=== PATIENT | female | born 1940 | race Caucasian/White ===

== ENCOUNTER 2017-03-22 05:25 | Inpatient (IN) | payer OTHER, MEDICARE ==
[~2017-03-22] VITALS: Ht 162.6 cm; Wt 74.8 kg
[~2017-03-22 05:25] MED LIST: AMLODIPINE BESYL5 MG PO; APRESOLINE100 MG PO; ASPIRIN EC325 MG PO; BYSTOLIC10 MG PO; CELECOXIB200 MG PO; CENTRUM SILVER1 EAC3 PO; CITRACAL + D E1 EACH PO; ESCITALOPRAM OX10 MG PO; FISH OIL 1,001000 M1 PO; HYDROCHLOROTH12.5 M3 PO; HYDROCODON-ACE1 EAC7 PO; IRON325 MG PO; MAGNESIUM250 MG PO; NAPROSYN500 MG PO; RED YEAST RICE600 MG PO; SENNA PLUS TAB1 EACH PO; VITAMIN B-125000 MCG SL
[2017-03-22 06:01] VITALS: BP 153/72
[2017-03-22] MEDS ORDERED: OMEPRAZOLE40 M1 PO (06:12)
[2017-03-22 11:01] LABS: HEMATOCRIT 39.8 % (36.0-46.0); MCH 31.5 PG (29.0-34.0); MCHC 32.7 G/DL (30.0-36.0); MCV 96.4 FL (83-99); MEAN PLAT.VOLUME 10.1 uM^3 (9.5-12.4); PLATELET COUNT 232 K/uL (156-360); RBC DIS.WIDTH-SD 46.2 % (39-53); RED BLOOD COUNT 4.13 M/uL (3.80-5.20)
[2017-03-22 11:09] LABS: WHITE BLOOD COUNT 9.8 K/uL (4.1-10.2)
[2017-03-22 12:32] VITALS: BP 120/56
[2017-03-22 15:44] VITALS: BP 137/63
[2017-03-22 20:00] VITALS: BP 170/73
[2017-03-23 00:16] VITALS: BP 162/74
[2017-03-23 03:48] VITALS: BP 138/73
[2017-03-23 04:57] LABS: HEMATOCRIT 35.8 % (36.0-46.0); MCV 95.7 FL (83-99)
[2017-03-23 05:08] LABS: CHLORIDE 103 mEq/L (99-109); POTASSIUM 4.4 mEq/L (3.7-5.4); SODIUM 133 mEq/L (136-147)
[2017-03-23 05:10] LABS: GLUCOSE 142 mg/dL (70-99)
[2017-03-23 05:12] LABS: ANION GAP 8 MEQ/L (2-14)
[2017-03-23 05:14] LABS: GFR ESTIMATE (CALCULATED) > 59 mL/min/
[2017-03-23 05:15] LABS: UREA NITROGEN (BUN) 23 mg/dL (9-23)
[2017-03-23 08:10] VITALS: BP 154/73
[2017-03-23 11:46] VITALS: BP 147/72
[2017-03-23 15:37] VITALS: BP 134/75
[2017-03-23] MEDS ORDERED: CELECOXIB200 MG PO (16:31)
[2017-03-23] MEDS ORDERED: LOVENOX40 MG/0.4 SC (16:31)
[2017-03-23] MEDS ORDERED: ENDOCET 5-3251 EACH PO (16:31)
[2017-03-23 19:58] VITALS: BP 169/71
[2017-03-24] VITALS: BP 136/63
[2017-03-24 04:00] VITALS: BP 125/67
[2017-03-24 05:28] LABS: HEMATOCRIT 31.7 % (36.0-46.0); MCV 94.9 FL (83-99)
[2017-03-24 08:03] VITALS: BP 142/66
[2017-03-24 11:40] VITALS: BP 100/51
[2017-03-24 14:55] VITALS: BP 121/55
== END 2017-03-24 14:55 | DRG 470 ==
LOC: 2SOUTH 05:25 → 3WEST 12:16
PROVIDERS: Orthopaedic Surgery
PROC: 0SRD0J9 Replacement of Left Knee Joint with Synthetic Substitute, Cemented, Open Approach (ICD-10-PCS; principal; 2017-03-22)
DX: M17.12 Unilateral primary osteoarthritis, left knee (principal); I10 Essential (primary) hypertension; F41.9 Anxiety disorder, unspecified; Z87.891 Personal history of nicotine dependence; Z96.641 Presence of right artificial hip joint
CPT/HCPCS: 73560; 80048; 85014; 85018; 85027; C1713; J0131; J0330; J0360; J0690; J1100; J1170; J1650; J2250; J2405; J3010; J7050

== ENCOUNTER 2017-04-25 20:43 | Emergency (ER) | payer OTHER, MEDICARE ==
[~2017-04-25] VITALS: Ht 162.6 cm; Wt 69.0 kg
[~2017-04-25 20:43] MED LIST changes: +ENDOCET 5-3251 EACH PO; +LOVENOX40 MG/0.4 SC; +OMEPRAZOLE40 M1 PO
[2017-04-25 23:43] LABS: HEMATOCRIT 37.5 % (36.0-46.0); MCH 31.3 PG (29.0-34.0); MCHC 33.6 G/DL (30.0-36.0); MCV 93.3 FL (83-99); MEAN PLAT.VOLUME 10.3 uM^3 (9.5-12.4); PLATELET COUNT 204 K/uL (156-360); RBC DIS.WIDTH-CV 12.9 % (11.8-14.6); RBC DIS.WIDTH-SD 43.9 % (39-53); RED BLOOD COUNT 4.02 M/uL (3.80-5.20)
[2017-04-25 23:44] LABS: WHITE BLOOD COUNT 10.9 K/uL (4.1-10.2)
[2017-04-25 23:55] LABS: CHLORIDE 98 mEq/L (99-109); POTASSIUM 3.7 mEq/L (3.7-5.4)
[2017-04-25 23:55] LABS: INTER. NORMALIZED RATIO 1.1
[2017-04-25 23:56] LABS: GLUCOSE 118 mg/dL (70-99)
[2017-04-25 23:58] LABS: ANION GAP 11 MEQ/L (2-14)
[2017-04-26] LABS: GFR ESTIMATE (CALCULATED) 47 mL/min/
[2017-04-26 00:01] LABS: SODIUM 132 mEq/L (136-147); UREA NITROGEN (BUN) 18 mg/dL (9-23)
[2017-04-26 01:10] LABS: ERTH.SED.RATE 20 MM/HR (0-30)
[2017-04-26 01:18] LABS: C-REACTIVE PROTEIN 132.8 MG/L (0-10)
[2017-04-26 01:58] VITALS: BP 143/78
== END 2017-04-26 01:59 | disposition home or self-care (01) ==
LOC: EME 20:43
PROVIDERS: Emergency Medicine
DX: G89.18 Other acute postprocedural pain (principal); E87.1 Hypo-osmolality and hyponatremia; R60.1 Generalized edema; Z96.652 Presence of left artificial knee joint; Z87.891 Personal history of nicotine dependence
CPT/HCPCS: 73564; 80048; 83605; 85027; 85610; 85651; 85730; 86140; 87040; 93971; 99281; 99285; J1885; J7030

== ENCOUNTER 2017-04-26 10:08 | Inpatient (IN) | payer OTHER, MEDICARE ==
[~2017-04-26] VITALS: Ht 162.6 cm; Wt 76.4 kg
[2017-04-26 11:44] VITALS: BP 115/63
[2017-04-26 15:38] LABS: EOSINOPHIL (%) 0 % (0-5); HEMATOCRIT 34.8 % (36.0-46.0); IMMATURE GRANULOCYTE (%) 0.4 % (0.0-0.7); INSTRUMENT ABS NEUTROPHIL CT 6.6 K/uL; LYMPHOCYTE COUNT 1.3 K/uL (1.0-2.8); MCHC 33.6 G/DL (30.0-36.0); MCV 92.3 FL (83-99); MEAN PLAT.VOLUME 10.2 uM^3 (9.5-12.4); MONOCYTE (%) 14.6 % (3-12); MONOCYTE COUNT 1.4 K/uL (0-0.8); NEUTROPHIL (%) 70.7 % (45-76); NEUTROPHIL COUNT 6.6 K/uL (1.8-6.4); PLATELET COUNT 167 K/uL (156-360); RBC DIS.WIDTH-CV 12.8 % (11.8-14.6); RBC DIS.WIDTH-SD 43.4 % (39-53); RED BLOOD COUNT 3.77 M/uL (3.80-5.20); WHITE BLOOD COUNT 9.4 K/uL (4.1-10.2)
[2017-04-26 19:26] LABS: MCH 31.1 PG (29.0-34.0); MCHC 33.2 G/DL (30.0-36.0); MCV 93.7 FL (83-99); MEAN PLAT.VOLUME 10.5 uM^3 (9.5-12.4); PLATELET COUNT 174 K/uL (156-360); RBC DIS.WIDTH-CV 12.9 % (11.8-14.6); RBC DIS.WIDTH-SD 44.2 % (39-53); RED BLOOD COUNT 3.63 M/uL (3.80-5.20); WHITE BLOOD COUNT 7.7 K/uL (4.1-10.2)
[2017-04-26 21:02] VITALS: BP 126/57
[2017-04-27 03:27] VITALS: BP 105/57
[2017-04-27 07:16] LABS: HEMATOCRIT 34.3 % (36.0-46.0); MCV 96.6 FL (83-99)
[2017-04-27 07:46] LABS: ANION GAP 9 MEQ/L (2-14); CHLORIDE 105 MEQ/L (99-109); GFR ESTIMATE (CALCULATED) > 59 mL/min/; GLUCOSE 126 mg/dL (70-99); POTASSIUM 4.2 MEQ/L (3.7-5.4); SAMPLE HEMOLYSIS CHECK 0; SAMPLE ICTERIC CHECK 0; SAMPLE LIPEMIA CHECK 0; UREA NITROGEN (BUN) 16 mg/dL (9-23)
[2017-04-27 07:47] LABS: SODIUM 139 MEQ/L (136-147)
[2017-04-27 08:35] VITALS: BP 112/61
[2017-04-27 12:01] VITALS: BP 94/56
[2017-04-27 13:33] LABS: C-REACTIVE PROTEIN 237.2 MG/L (0-10)
[2017-04-27 15:40] VITALS: BP 118/63
[2017-04-27 23:47] VITALS: BP 108/51
[2017-04-28 07:28] LABS: HEMATOCRIT 30.5 % (36.0-46.0); MCV 93.6 FL (83-99)
[2017-04-28 08:19] VITALS: BP 104/63
[2017-04-28 15:25] VITALS: BP 142/82
[2017-04-28 22:12] VITALS: BP 151/67
[2017-04-29 00:09] VITALS: BP 118/56
[2017-04-29 08:00] VITALS: BP 133/63
[2017-04-29] MEDS ORDERED: NAFCIL 2 G2 GM/100 M IV (13:40)
== END 2017-04-29 12:15 | DRG 468 ==
LOC: SDC 10:08 → 2EAST 18:58 → 2SOUTH 18:58 → 2EAST 21:00
PROVIDERS: Anesthesiology; Orthopaedic Surgery
DX: S76.112A Strain of left quadriceps muscle, fascia and tendon, initial encounter (principal); B95.61 Methicillin susceptible Staphylococcus aureus infection as the cause of diseases classified elsewhere; M65.162 Other infective (teno)synovitis, left knee; I10 Essential (primary) hypertension; M65.15 Other infective (teno)synovitis, hip; W19.XXXA Unspecified fall, initial encounter; Y92.009 Unspecified place in unspecified non-institutional (private) residence as the place of occurrence of the external cause; R29.6 Repeated falls; Z96.653 Presence of artificial knee joint, bilateral; F41.9 Anxiety disorder, unspecified; R41.0 Disorientation, unspecified; T40.2X5A Adverse effect of other opioids, initial encounter
CPT/HCPCS: 73560; 76000; 76937; 80048; 85014; 85018; 85025; 85027; 86140; 87070; 87075; 87077; 87147; 87186; 87205; 94799; C1713; J0131; J0330; J0690; J1170; J1650; J2543; J3010; J3370; J7030; J7050; S0032

== ENCOUNTER 2017-04-29 11:12 | Inpatient (IN) | payer OTHER, MEDICARE ==
[~2017-04-29] VITALS: Ht 162.6 cm; Wt 77.4 kg
[2017-04-29 10:10] VITALS: BP 154/77
[2017-04-29 12:30] VITALS: BP 147/67
[2017-04-29] MEDS ORDERED: NAFCIL 2 G2 GM/100 M IV (13:40)
[2017-04-29 15:24] VITALS: BP 145/68
[2017-04-29 22:10] VITALS: BP 154/77
[2017-04-30 05:27] VITALS: BP 127/62
[2017-04-30 06:24] LABS: HEMATOCRIT 29.9 % (36.0-46.0); MCH 31.2 PG (29.0-34.0); MCHC 33.4 G/DL (30.0-36.0); MCV 93.1 FL (83-99); MEAN PLAT.VOLUME 10.1 uM^3 (9.5-12.4); RBC DIS.WIDTH-CV 13.2 % (11.8-14.6); RBC DIS.WIDTH-SD 44.8 % (39-53); RED BLOOD COUNT 3.21 M/uL (3.80-5.20); WHITE BLOOD COUNT 8.1 K/uL (4.1-10.2)
[2017-04-30 06:26] LABS: PLATELET COUNT 289 K/uL (156-360)
[2017-04-30 06:49] LABS: ALKALINE PHOSPHATASE 50 IU/L (3-129); ANION GAP 9 MEQ/L (2-14); CHLORIDE 105 MEQ/L (99-109); GFR ESTIMATE (CALCULATED) > 59 mL/min/; GLUCOSE 98 mg/dL (70-99); SAMPLE HEMOLYSIS CHECK 0; SAMPLE ICTERIC CHECK 0; SAMPLE LIPEMIA CHECK 0; SODIUM 142 MEQ/L (136-147); TOTAL BILIRUBIN 0.7 MG/DL (0.0-1.0); UREA NITROGEN (BUN) 8 mg/dL (9-23)
[2017-04-30 06:51] LABS: POTASSIUM 3.1 MEQ/L (3.7-5.4)
[2017-04-30 07:31] VITALS: BP 120/68
[2017-04-30 15:32] VITALS: BP 143/68
[2017-05-01 04:32] VITALS: BP 138/67
[2017-05-01 09:54] LABS: ANION GAP 12 MEQ/L (2-14); CHLORIDE 105 MEQ/L (99-109); GFR ESTIMATE (CALCULATED) 58 mL/min/; GLUCOSE 144 mg/dL (70-99); POTASSIUM 3.5 MEQ/L (3.7-5.4); SAMPLE HEMOLYSIS CHECK 0; SAMPLE ICTERIC CHECK 0; SAMPLE LIPEMIA CHECK 0; SODIUM 139 MEQ/L (136-147); UREA NITROGEN (BUN) 9 mg/dL (9-23)
[2017-05-01 15:17] VITALS: BP 189/82
[2017-05-01 17:55] VITALS: BP 146/70
[2017-05-02 05:12] VITALS: BP 139/64
[2017-05-02] MEDS ORDERED: CIPRO500 MG PO (14:46)
[2017-05-02] MEDS ORDERED: CIPROFLOXACIN500 M1 PO (14:50)
[2017-05-02 15:53] VITALS: BP 167/74
[2017-05-02 22:55] LABS: C DIFF TOXIN NEGATIVE (NEGATIVE)
[2017-05-02 22:56] LABS: PROBE CHECK PASS; SPECIMEN PROCESSING CONTROL PASS
[2017-05-03 05:40] VITALS: BP 148/63
[2017-05-03 07:10] LABS: HEMATOCRIT 29.3 % (36.0-46.0); MCH 30.6 PG (29.0-34.0); MCHC 32.8 G/DL (30.0-36.0); MCV 93.3 FL (83-99); MEAN PLAT.VOLUME 9.8 uM^3 (9.5-12.4); RBC DIS.WIDTH-CV 13.9 % (11.8-14.6); RBC DIS.WIDTH-SD 47.5 % (39-53); RED BLOOD COUNT 3.14 M/uL (3.80-5.20); WHITE BLOOD COUNT 8.6 K/uL (4.1-10.2)
[2017-05-03 07:11] LABS: PLATELET COUNT 413 K/uL (156-360)
[2017-05-03 07:44] LABS: ANION GAP 12 MEQ/L (2-14); CHLORIDE 107 MEQ/L (99-109); GFR ESTIMATE (CALCULATED) 58 mL/min/; POTASSIUM 3.5 MEQ/L (3.7-5.4); SAMPLE HEMOLYSIS CHECK 0; SAMPLE ICTERIC CHECK 0; SAMPLE LIPEMIA CHECK 0; SODIUM 143 MEQ/L (136-147); UREA NITROGEN (BUN) 6 mg/dL (9-23)
[2017-05-03 07:47] LABS: GLUCOSE 95 mg/dL (70-99)
[2017-05-03 15:30] VITALS: BP 187/84
[2017-05-03 16:00] VITALS: BP 137/65
[2017-05-03] MEDS ORDERED: FLORASTOR250 MG PO (20:27)
[2017-05-03] MEDS ORDERED: LOVENOX40 MG/0.4 SC (20:27)
[2017-05-04 05:11] VITALS: BP 151/80
[2017-05-04 06:23] LABS: ANION GAP 8 MEQ/L (2-14); CHLORIDE 109 MEQ/L (99-109); GFR ESTIMATE (CALCULATED) 52 mL/min/; GLUCOSE 101 mg/dL (70-99); POTASSIUM 3.4 MEQ/L (3.7-5.4); SAMPLE HEMOLYSIS CHECK 0; SAMPLE ICTERIC CHECK 0; SAMPLE LIPEMIA CHECK 0; SODIUM 144 MEQ/L (136-147); UREA NITROGEN (BUN) 6 mg/dL (9-23)
[2017-05-04 15:32] VITALS: BP 153/73
[2017-05-05] MEDS ORDERED: VITAMIN C500 M1 PO (12:02)
== END 2017-05-04 15:40 | DRG 537 ==
LOC: 3WEST 11:12
PROVIDERS: Physical Medicine & Rehabilitation Pain Medicine
PROC: F07M7ZZ Manual Therapy Techniques Treatment of Musculoskeletal System - Whole Body (ICD-10-PCS; principal; 2017-04-29)
DX: S76.119A Strain of unspecified quadriceps muscle, fascia and tendon, initial encounter (principal); R53.1 Weakness; D62 Acute posthemorrhagic anemia; M17.12 Unilateral primary osteoarthritis, left knee; E87.6 Hypokalemia; F41.9 Anxiety disorder, unspecified; I10 Essential (primary) hypertension; W19.XXXA Unspecified fall, initial encounter; Y92.009 Unspecified place in unspecified non-institutional (private) residence as the place of occurrence of the external cause
CPT/HCPCS: 80048; 80053; 85027; 87493; 97110 GO; 97530 GP; J0696; J1650; J7050; S0032

== ENCOUNTER 2017-05-16 18:35 | Emergency (ER) | payer OTHER, MEDICARE ==
[~2017-05-16] VITALS: Ht 162.6 cm; Wt 69.1 kg
[~2017-05-16 18:35] MED LIST changes: +CIPRO500 MG PO; +CIPROFLOXACIN500 M1 PO; +FLORASTOR250 MG PO; +NAFCIL 2 G2 GM/100 M IV; +VITAMIN C500 M1 PO
[2017-05-16 19:34] LABS: CHLORIDE 104 mEq/L (99-109); POTASSIUM 3.9 mEq/L (3.7-5.4); SODIUM 135 mEq/L (136-147)
[2017-05-16 19:35] LABS: MCH 30.4 PG (29.0-34.0); MCHC 31.8 G/DL (30.0-36.0); MCV 95.8 FL (83-99); RBC DIS.WIDTH-CV 15.8 % (11.8-14.6); RED BLOOD COUNT 3.55 M/uL (3.80-5.20); WHITE BLOOD COUNT 4.4 K/uL (4.1-10.2)
[2017-05-16 19:37] LABS: GLUCOSE 98 mg/dL (70-99)
[2017-05-16 19:38] LABS: ANION GAP 9 MEQ/L (2-14)
[2017-05-16 19:39] LABS: TOTAL BILIRUBIN 0.3 mg/dL (0.0-1.0)
[2017-05-16 19:40] LABS: ALKALINE PHOSPHATASE 74 IU/L (3-129); GFR ESTIMATE (CALCULATED) 58 mL/min/
[2017-05-16 19:41] LABS: UREA NITROGEN (BUN) 17 mg/dL (9-23)
[2017-05-16 20:15] LABS: HEMATOLOGY COMMENT 1 SN; MEAN PLAT.VOLUME 9.7 uM^3 (9.5-12.4); PLAT.SUFFICIENCY ADEQUATE
[2017-05-16 20:16] LABS: PLATELET COUNT 304 K/uL (156-360)
[2017-05-16 21:23] VITALS: BP 138/77
[2017-05-22] MEDS ORDERED: CIPRO500 MG PO (10:29)
== END 2017-05-16 21:27 | disposition home or self-care (01) ==
LOC: EME 18:35 → RME 18:35
PROVIDERS: Nurse Practitioner Family
DX: R50.9 Fever, unspecified (principal); I10 Essential (primary) hypertension; K21.9 Gastro-esophageal reflux disease without esophagitis; Z87.891 Personal history of nicotine dependence
CPT/HCPCS: 80053; 83605; 85027; 87040; 99281; 99283

== ENCOUNTER 2017-08-24 18:41 | Emergency (ER) | payer OTHER, MEDICARE ==
[~2017-08-24] VITALS: Ht 162.6 cm; Wt 68.1 kg
[2017-08-24 20:42] LABS: MCH 30.2 PG (29.0-34.0); MCHC 33.7 G/DL (30.0-36.0); MCV 89.7 FL (83-99); MEAN PLAT.VOLUME 10.3 uM^3 (9.5-12.4); PLATELET COUNT 249 K/uL (156-360); RBC DIS.WIDTH-CV 13.5 % (11.8-14.6); RBC DIS.WIDTH-SD 44.3 % (39-53); RED BLOOD COUNT 4.57 M/uL (3.80-5.20); WHITE BLOOD COUNT 7.2 K/uL (4.1-10.2)
[2017-08-24 20:48] LABS: PROTHROMBIN TIME 11.3 SEC (10.2-12.9)
[2017-08-24 20:50] LABS: PTT 28.9 SEC (25-37)
[2017-08-24 20:52] LABS: CHLORIDE 111 mEq/L (99-109); POTASSIUM 3.9 mEq/L (3.7-5.4); SODIUM 140 mEq/L (136-147)
[2017-08-24 20:53] LABS: GLUCOSE 117 mg/dL (70-99)
[2017-08-24 20:55] LABS: ANION GAP 5 MEQ/L (2-14)
[2017-08-24 20:57] LABS: GFR ESTIMATE (CALCULATED) > 59 mL/min/
[2017-08-24 20:58] LABS: UREA NITROGEN (BUN) 22 mg/dL (9-23)
[2017-08-24] MEDS ORDERED: LOVENOX60 MG/0.6 SC (21:37)
[2017-08-24] MEDS ORDERED: WARFARIN SODIUM5 MG PO (21:38)
[2017-08-24 22:02] VITALS: BP 154/77
== END 2017-08-24 22:43 | disposition home or self-care (01) ==
LOC: EME 18:41
PROVIDERS: Physician Assistant
DX: I82.402 Acute embolism and thrombosis of unspecified deep veins of left lower extremity (principal); I10 Essential (primary) hypertension; K21.9 Gastro-esophageal reflux disease without esophagitis; F41.9 Anxiety disorder, unspecified; Z96.652 Presence of left artificial knee joint; Z87.891 Personal history of nicotine dependence
CPT/HCPCS: 80048; 85027; 85610; 85730; 99281; 99284; J1650